=== PATIENT | male | born 1990 | race Caucasian/White ===

== ENCOUNTER 2024-04-21 17:17 | Emergency (ER) | payer OTHER ==
[2024-04-21] MEDS: Diphtheria,Pertussis(Acell),Tetanus Vaccine 0.5 ML Syringe IM ONE (19:48)
[2024-04-21] MEDS: Lidocaine 1% 5 ML VIAL INJECT STA (19:48)
[2024-04-21 20:43] VITALS: BP 154/99; PULSE 90
== END 2024-04-21 20:42 | disposition home or self-care (01) ==
LOC: MW.ED 17:17
DX: S01.81XA Laceration without foreign body of other part of head, initial encounter (principal); Z79.899 Other long term (current) drug therapy; Z88.2 Allergy status to sulfonamides; Z88.1 Allergy status to other antibiotic agents; Z75.8 Other problems related to medical facilities and other health care; W20.8XXA Other cause of strike by thrown, projected or falling object, initial encounter; Y99.0 Civilian activity done for income or pay; Z23 Encounter for immunization
CPT/HCPCS: 12011; 70486; 90471; 90715; 99283; J2003